=== PATIENT | female | born 1950 ===

== ENCOUNTER 2020-01-11 08:47 | Outpatient (CLI) | payer MEDICARE ==
--- NOTE | 2020-01-11 13:07 | CT ---
CT ABDOMEN AND PELVIS WITH ORAL AND IV CONTRAST: Date: 01/11/2020 HISTORY: 69-year-old female with abdominal discomfort, bloating, and swelling. COMPARISON: None. FINDINGS: There are calcified granulomas in the liver and spleen. The liver demonstrates decreased attenuation compared to the spleen, consistent with fatty infiltration. No hepatic mass or abnormal biliary ducta l dilatation is seen. No calcified gallstones are noted. The pancreas, adrenal glands, and kidneys ar e normal. No free air, free fluid, or lymphadenopathy seen in the abdomen or pelvis. The small bowel loops are not abnormally dilated. There is mild colonic diverticulosis without diverticulitis. There are vascul ar calcifications without evidence of aneurysmal dilatation of the abdominal aorta. There are degener ative changes in the spine. The patient is status post hysterectomy. IMPRESSION: 1. Fatty liver. 2. Calcified granulomas in the liver and spleen. 3. Mild colonic diverticulosis. POS: OFF
== END 2020-01-11 08:48 | disposition home or self-care (01) ==
LOC: SCSCT 08:47
PROVIDERS: ATTEND Family Medicine
DX: R10.9 Unspecified abdominal pain (principal); K76.0 Fatty (change of) liver, not elsewhere classified; K57.30 Diverticulosis of large intestine without perforation or abscess without bleeding; K75.3 Granulomatous hepatitis, not elsewhere classified; D73.89 Other diseases of spleen
CPT/HCPCS: 74177; 82565